=== PATIENT | female | born 1955 | race African-American/Black ===

== ENCOUNTER 2016-11-13 07:28 | Emergency (ER) | payer MEDICAID ==
[~2016-11-13] VITALS: Ht 157.5 cm; Wt 70.0 kg
[~2016-11-13 07:28] MED LIST: ATOR10TA PO; BUSP5TAB3 PO; CLON1TAB4 PO; LISI1TAB9 PO; NAPR-679 PO; OMEP20CA4 PO; PHEN100C4 PO; Trazodone Hcl PO
[2016-11-13 07:49] VITALS: BP 150/89
== END 2016-11-13 09:07 | disposition home or self-care (01) ==
LOC: ER 08:02
DX: Z76.0 Encounter for issue of repeat prescription (principal); I10 Essential (primary) hypertension
CPT/HCPCS: 99283

== ENCOUNTER 2017-02-09 07:18 | Emergency (ER) | payer MEDICAID ==
[~2017-02-09] VITALS: Ht 160 cm; Wt 66.0 kg
[2017-02-09 07:37] VITALS: BP 125/97
== END 2017-02-09 10:25 | disposition home or self-care (01) ==
LOC: ER 08:35
DX: Z76.0 Encounter for issue of repeat prescription (principal); G40.909 Epilepsy, unspecified, not intractable, without status epilepticus; I10 Essential (primary) hypertension
CPT/HCPCS: 99283

== ENCOUNTER 2017-12-08 04:54 | Emergency (ER) | payer MEDICAID ==
[~2017-12-08] VITALS: Ht 154.9 cm; Wt 65.0 kg
[~2017-12-08 04:54] MED LIST changes: +CLON1TAB12 PO; -CLON1TAB4 PO
[2017-12-08] MEDS ORDERED: KETOROLAC 60MG/2ML VIAL IM ONE (06:15)
[2017-12-08 06:31] VITALS: BP 153/99
== END 2017-12-08 06:55 | disposition home or self-care (01) ==
LOC: ER 04:54
DX: M54.5 Low back pain (principal); M54.30 Sciatica, unspecified side; I10 Essential (primary) hypertension; G40.909 Epilepsy, unspecified, not intractable, without status epilepticus; M19.90 Unspecified osteoarthritis, unspecified site; Z90.710 Acquired absence of both cervix and uterus
CPT/HCPCS: 96372; 99283; J1885

== ENCOUNTER 2017-12-09 16:32 | Inpatient (IN) | payer MEDICAID ==
[~2017-12-09] VITALS: Ht 165.1 cm; Wt 64.2 kg
[2017-12-09] MEDS ORDERED: ASPIRIN 81MG TABLET PO ONE (18:00)
[2017-12-09 18:37] LABS: BASOPHILS % 0.7 % (0.0-2.0); HEMOGLOBIN. 13.2 g/dL (12.0-16.0); LYMPHOCYTES % 47.8 % (20.0-50.0); MEAN CORPUSCULAR HEMOGLOBIN 30.5 pg (28.0-32.0); MEAN CORPUSCULAR VOLUME 90.5 fL (81.0-99.0); MEAN PLATELET VOLUME 8.2 fl (7.4-10.4); MONOCYTES % 9.2 % (2.0-8.0); NEUTROPHILS % 41.3 % (40.0-76.0); PLATELET 261 x1000/uL (130-400); RED BLOOD CELL COUNT 4.32 mill/uL (4.2-5.4); RED CELL DISTRIBUTION WIDTH 14.2 % (11.6-14.6)
[2017-12-09 18:44] LABS: CHLORIDE 110 mEq/L (98-107)
[2017-12-09 19:05] LABS: CREATINE KINASE 130 IU/L (26-192); CREATINE KINASE MB FRACTION < 1.0 ng/mL (0.5-3.6)
[2017-12-09 19:25] LABS: CLARITY URINE CLEAR (CLEAR); COLOR URINE YELLOW (YELLOW); KETONES URINE NEGATIVE (NEGATIVE); LEUKOCYTE ESTERASE URINE NEGATIVE (NEGATIVE); NITRITE URINE NEGATIVE (NEGATIVE); OCCULT BLOOD URINE NEGATIVE (NEGATIVE); PROTEIN URINE NEGATIVE (NEGATIVE); SPECIFIC GRAVITY URINE 1.005 (1.005-1.030); UROBILINOGEN URINE 0.2 E.U./dL (0.2-1.0)
[2017-12-09 21:50] VITALS: BP 156/77
[2017-12-09 22:00] VITALS: BP 156/76
[2017-12-10] VITALS: BP 151/90
[2017-12-10] MEDS ORDERED: CLONIDINE 0.1MG TABLET PO PRN (00:15)
[2017-12-10] MEDS ORDERED: ONDANSETRON HCL 4MG/2ML INJ IV PRN (00:15)
[2017-12-10] MEDS ORDERED: MAGNESIUM/ALUMINUM HYDROXIDE/SIMETHICONE 30ML UDC PO PRN (00:15)
[2017-12-10] MEDS ORDERED: GUAIFENESIN 200MG/10ML SUGAR FREE UDC PO PRN (00:15)
[2017-12-10] MEDS ORDERED: DOCUSATE SODIUM 100MG CAPSULE PO PRN (00:15)
[2017-12-10] MEDS: ENOXAPARIN 40MG/0.4ML SYR SUBCUT SCH ×2 (00:15→21:10)
[2017-12-10] MEDS ORDERED: ACETAMINOPHEN 325MG TABLET PO PRN (00:15)
[2017-12-10] MEDS: HYDROCODONE/ACETAMINOPHEN 5/325MG TABLET PO PRN ×3 (01:39→21:08)
[2017-12-10 02:02] LABS: CHLORIDE 109 mEq/L (98-107)
[2017-12-10 04:00] VITALS: BP 148/85
[2017-12-10 07:31] LABS: BASOPHILS % 0.7 % (0.0-2.0); EOSINOPHILS % 0.9 % (0.0-5.0); HEMATOCRIT. 40.2 % (36.0-48.0); HEMOGLOBIN. 13.6 g/dL (12.0-16.0); LYMPHOCYTES % 48.3 % (20.0-50.0); MEAN CORPUSCULAR HEMOGLOBIN 30.6 pg (28.0-32.0); MEAN CORPUSCULAR VOLUME 90.3 fL (81.0-99.0); MEAN PLATELET VOLUME 8.4 fl (7.4-10.4); MONOCYTES % 8.2 % (2.0-8.0); NEUTROPHILS % 41.9 % (40.0-76.0); PLATELET 261 x1000/uL (130-400); RED BLOOD CELL COUNT 4.46 mill/uL (4.2-5.4); RED CELL DISTRIBUTION WIDTH 14.2 % (11.6-14.6)
[2017-12-10 08:13] LABS: CREATINE KINASE 112 IU/L (26-192); CREATINE KINASE MB FRACTION < 1.0 ng/mL (0.5-3.6); HDL CHOLESTEROL 80 mg/dL (40-59); LDL CHOLESTEROL 107 mg/dL (5-100)
[2017-12-10] MEDS: ASPIRIN 81MG EC TABLET PO SCH (09:23)
[2017-12-10] MEDS: IPRATROPIUM/ALBUTEROL 0.5-3(2.5)MG/3ML NEB INH SCH ×3 (09:31→21:26)
[2017-12-10] MEDS ORDERED: BUSPIRONE HCL 5 MG PO PRN (11:30)
[2017-12-10] MEDS ORDERED: HYDROCHLOROTHIAZIDE 25MG TABLET PO SCH (11:30)
[2017-12-10] MEDS ORDERED: BUSPIRONE HCL 5MG TABLET PO PRN (12:15)
[2017-12-10] MEDS: LISINOPRIL 10MG TABLET PO SCH (12:21)
[2017-12-10] MEDS: PHENYTOIN SODIUM EXTENDED 100MG CAPSULE PO SCH ×3 (12:21→17:30)
[2017-12-10] MEDS: CLONAZEPAM 1MG TABLET PO SCH (12:21)
[2017-12-10 12:27] LABS: *AMPHETAMINES SCREEN URINE NEGATIVE (NEGATIVE); *BARBITURATES SCREEN URINE NEGATIVE (NEGATIVE); *BENZODIAZEPINES SCREEN URINE NEGATIVE (NEGATIVE)
[2017-12-10 12:28] LABS: *COCAINE SCREEN URINE NEGATIVE (NEGATIVE); CANNABINOID URINE SCREEN PRESUMTIVE POSITIVE (NEGATIVE); METHADONE URINE SCREEN NEGATIVE (NEGATIVE); OPIATES URINE SCREEN PRESUMTIVE POSITIVE (NEGATIVE); PHENCYCLIDINE URINE SCREEN NEGATIVE (NEGATIVE)
[2017-12-10] MEDS ORDERED: MAGNESIUM SULFATE 2 GM in DEXTROSE 5% WATER 50 ML IV NR (13:30)
[2017-12-10] MEDS ORDERED: POTASSIUM CHLORIDE 20MEQ TABLET SR PO NR (14:30)
[2017-12-10] MEDS: AMLODIPINE 2.5MG TABLET PO SCH ×2 (14:30→21:00)
[2017-12-10 18:26] LABS: CREATINE KINASE 103 IU/L (26-192); CREATINE KINASE MB FRACTION < 1.0 ng/mL (0.5-3.6)
[2017-12-10 20:00] VITALS: BP_SYST 114; BP_SYST 125; BP_SYST 97; BP_DIAS 62; BP_DIAS 81; BP_DIAS 86
[2017-12-10] MEDS: ATORVASTATIN CALCIUM 10MG TABLET PO SCH (21:06)
[2017-12-10] MEDS: TRAZODONE HCL 50MG TABLET PO SCH (21:08)
[2017-12-11] VITALS (8 sets, daily range): BP systolic 90–124; BP diastolic 45–94
[2017-12-11] MEDS: IPRATROPIUM/ALBUTEROL 0.5-3(2.5)MG/3ML NEB INH SCH ×3 (02:30→14:03)
[2017-12-11 06:22] LABS: BASOPHILS % 0.7 % (0.0-2.0); EOSINOPHILS % 0.8 % (0.0-5.0); HEMATOCRIT. 41.4 % (36.0-48.0); LYMPHOCYTES % 43.7 % (20.0-50.0); MEAN CORPUSCULAR HEMOGLOBIN 30.6 pg (28.0-32.0); MEAN CORPUSCULAR VOLUME 90.6 fL (81.0-99.0); MEAN PLATELET VOLUME 8.5 fl (7.4-10.4); MONOCYTES % 8.8 % (2.0-8.0); PLATELET 265 x1000/uL (130-400); RED BLOOD CELL COUNT 4.57 mill/uL (4.2-5.4); RED CELL DISTRIBUTION WIDTH 14.1 % (11.6-14.6)
[2017-12-11] MEDS: OMEPRAZOLE 20MG CAPSULE EXTENDED RELEASE PO SCH (06:45)
[2017-12-11 08:51] LABS: CHLORIDE 105 mEq/L (98-107)
[2017-12-11 09:06] LABS: HDL CHOLESTEROL 76 mg/dL (40-59); LDL CHOLESTEROL 112 mg/dL (5-100)
[2017-12-11] MEDS: CLONAZEPAM 1MG TABLET PO SCH (09:35)
[2017-12-11] MEDS: PHENYTOIN SODIUM EXTENDED 100MG CAPSULE PO SCH ×3 (09:35→18:51)
[2017-12-11] MEDS: ASPIRIN 81MG EC TABLET PO SCH (09:35)
[2017-12-11] MEDS: AMLODIPINE 2.5MG TABLET PO SCH ×2 (09:36→20:37)
[2017-12-11] MEDS: LISINOPRIL 10MG TABLET PO SCH (09:36)
[2017-12-11] MEDS: HYDROCODONE/ACETAMINOPHEN 5/325MG TABLET PO PRN ×2 (09:37→17:54)
[2017-12-11] MEDS ORDERED: REGADENOSON 0.4 MG/5 ML IV NR (16:00)
[2017-12-11] MEDS: ATORVASTATIN CALCIUM 10MG TABLET PO SCH (20:35)
[2017-12-11] MEDS: ENOXAPARIN 40MG/0.4ML SYR SUBCUT SCH (20:37)
[2017-12-11] MEDS: TRAZODONE HCL 50MG TABLET PO SCH (20:37)
[2017-12-12] VITALS (9 sets, daily range): BP systolic 90–129; BP diastolic 61–95
[2017-12-12] MEDS: OMEPRAZOLE 20MG CAPSULE EXTENDED RELEASE PO SCH (05:59)
[2017-12-12] MEDS: HYDROCODONE/ACETAMINOPHEN 5/325MG TABLET PO PRN ×2 (06:04→18:06)
[2017-12-12 07:03] LABS: BASOPHILS % 0.7 % (0.0-2.0); EOSINOPHILS % 0.7 % (0.0-5.0); HEMATOCRIT. 43.6 % (36.0-48.0); HEMOGLOBIN. 14.7 g/dL (12.0-16.0); LYMPHOCYTES % 45.7 % (20.0-50.0); MEAN CORPUSCULAR HEMOGLOBIN 30.3 pg (28.0-32.0); MEAN CORPUSCULAR VOLUME 89.9 fL (81.0-99.0); MEAN PLATELET VOLUME 8.1 fl (7.4-10.4); MONOCYTES % 8.7 % (2.0-8.0); NEUTROPHILS % 44.2 % (40.0-76.0); PLATELET 276 x1000/uL (130-400); RED BLOOD CELL COUNT 4.85 mill/uL (4.2-5.4); RED CELL DISTRIBUTION WIDTH 14.3 % (11.6-14.6)
[2017-12-12] MEDS: IPRATROPIUM/ALBUTEROL 0.5-3(2.5)MG/3ML NEB INH SCH ×3 (08:40→20:06)
[2017-12-12] MEDS: ASPIRIN 81MG EC TABLET PO SCH (09:35)
[2017-12-12] MEDS: CLONAZEPAM 1MG TABLET PO SCH (09:36)
[2017-12-12] MEDS: AMLODIPINE 2.5MG TABLET PO SCH ×2 (09:36→20:37)
[2017-12-12] MEDS: LISINOPRIL 10MG TABLET PO SCH (09:36)
[2017-12-12] MEDS: PHENYTOIN SODIUM EXTENDED 100MG CAPSULE PO SCH ×3 (09:36→17:03)
[2017-12-12 10:48] LABS: CHLORIDE 105 mEq/L (98-107)
[2017-12-12] MEDS: ENOXAPARIN 40MG/0.4ML SYR SUBCUT SCH (20:36)
[2017-12-12] MEDS: ATORVASTATIN CALCIUM 10MG TABLET PO SCH (20:36)
[2017-12-12] MEDS: TRAZODONE HCL 50MG TABLET PO SCH (20:36)
[2017-12-13] MEDS: IPRATROPIUM/ALBUTEROL 0.5-3(2.5)MG/3ML NEB INH SCH ×4 (02:47→20:31)
[2017-12-13 04:00] VITALS: BP 95/71
[2017-12-13] MEDS: OMEPRAZOLE 20MG CAPSULE EXTENDED RELEASE PO SCH (05:51)
[2017-12-13] MEDS: AMLODIPINE 2.5MG TABLET PO SCH ×2 (09:00→21:00)
[2017-12-13] MEDS ORDERED: REGADENOSON 0.4 MG/5 ML IV ONE (09:41)
[2017-12-13] MEDS: ASPIRIN 81MG EC TABLET PO SCH (11:18)
[2017-12-13] MEDS: CLONAZEPAM 1MG TABLET PO SCH (11:18)
[2017-12-13] MEDS: PHENYTOIN SODIUM EXTENDED 100MG CAPSULE PO SCH ×3 (11:18→17:00)
[2017-12-13] MEDS: LISINOPRIL 10MG TABLET PO SCH (11:20)
[2017-12-13 12:00] VITALS: BP_SYST 114; BP_SYST 116; BP_SYST 127; BP_DIAS 78; BP_DIAS 81; BP_DIAS 96
[2017-12-13] MEDS: HYDROCODONE/ACETAMINOPHEN 5/325MG TABLET PO PRN ×2 (12:41→20:56)
[2017-12-13 16:00] VITALS: BP 94/66
[2017-12-13 20:00] VITALS: BP 110/81
[2017-12-13] MEDS: ATORVASTATIN CALCIUM 10MG TABLET PO SCH (20:55)
[2017-12-13] MEDS: TRAZODONE HCL 50MG TABLET PO SCH (20:55)
[2017-12-13] MEDS: ENOXAPARIN 40MG/0.4ML SYR SUBCUT SCH (20:57)
[2017-12-13] MEDS: FAMOTIDINE 20MG TABLET PO SCH (21:13)
[2017-12-13] MEDS ORDERED: PHENYTOIN SODIUM EXTENDED 100MG CAPSULE PO NR (22:30)
[2017-12-14] VITALS: BP_SYST 104; BP_SYST 108; BP_SYST 94; BP_DIAS 70; BP_DIAS 75
[2017-12-14] MEDS: IPRATROPIUM/ALBUTEROL 0.5-3(2.5)MG/3ML NEB INH SCH ×3 (02:42→12:37)
[2017-12-14 04:00] VITALS: BP 99/70
[2017-12-14] MEDS: OMEPRAZOLE 20MG CAPSULE EXTENDED RELEASE PO SCH (06:17)
[2017-12-14 06:46] LABS: BASOPHILS % 0.6 % (0.0-2.0); EOSINOPHILS % 0.9 % (0.0-5.0); HEMATOCRIT. 43.9 % (36.0-48.0); LYMPHOCYTES % 50.7 % (20.0-50.0); MEAN CORPUSCULAR HEMOGLOBIN 30.9 pg (28.0-32.0); MEAN CORPUSCULAR VOLUME 90.4 fL (81.0-99.0); MEAN PLATELET VOLUME 8.4 fl (7.4-10.4); MONOCYTES % 11.7 % (2.0-8.0); NEUTROPHILS % 36.1 % (40.0-76.0); PLATELET 278 x1000/uL (130-400); RED BLOOD CELL COUNT 4.85 mill/uL (4.2-5.4); RED CELL DISTRIBUTION WIDTH 13.8 % (11.6-14.6)
[2017-12-14 07:38] LABS: CHLORIDE 104 mEq/L (98-107)
[2017-12-14 08:00] VITALS: BP 119/83
[2017-12-14] MEDS: AMLODIPINE 2.5MG TABLET PO SCH (08:57)
[2017-12-14] MEDS: PHENYTOIN SODIUM EXTENDED 100MG CAPSULE PO SCH ×2 (09:18→13:56)
[2017-12-14] MEDS: CLONAZEPAM 1MG TABLET PO SCH (09:18)
[2017-12-14] MEDS: FAMOTIDINE 20MG TABLET PO SCH (09:18)
[2017-12-14] MEDS: ASPIRIN 81MG EC TABLET PO SCH (09:18)
[2017-12-14] MEDS: LISINOPRIL 10MG TABLET PO SCH (09:18)
[2017-12-14 11:51] VITALS: BP 109/80
[2017-12-14] MEDS: HYDROCODONE/ACETAMINOPHEN 5/325MG TABLET PO PRN (12:02)
[2017-12-14] MEDS ORDERED: ATOR10TA PO (12:54)
[2017-12-14] MEDS ORDERED: LISI10TA5 PO (12:54)
[2017-12-14] MEDS ORDERED: FAMO20TA8 PO (12:54)
[2017-12-14] MEDS ORDERED: TRAM50TA3 MT (12:54)
[2017-12-14] MEDS ORDERED: PHEN100C4 PO (12:54)
[2017-12-14] MEDS ORDERED: AMLO2.5T45 PO (12:54)
[2017-12-14] MEDS ORDERED: ASPI-1158 PO (12:54)
[2017-12-14 14:47] VITALS: BP 109/80
== END 2017-12-14 15:25 | disposition home or self-care (01) | DRG 48 ==
LOC: ER 16:32 → 5WST 19:53 → CANRESERV 20:41 → ENRESERV 20:41
PROVIDERS: ADMIT Internal Medicine; ATTEND Internal Medicine
DX: G90.8 Other disorders of autonomic nervous system (principal); E83.42 Hypomagnesemia; R07.9 Chest pain, unspecified; E78.5 Hyperlipidemia, unspecified; I10 Essential (primary) hypertension; E78.00 Pure hypercholesterolemia, unspecified; F12.90 Cannabis use, unspecified, uncomplicated; F41.9 Anxiety disorder, unspecified; G40.909 Epilepsy, unspecified, not intractable, without status epilepticus; I65.22 Occlusion and stenosis of left carotid artery; K21.9 Gastro-esophageal reflux disease without esophagitis; M19.90 Unspecified osteoarthritis, unspecified site; Z82.49 Family history of ischemic heart disease and other diseases of the circulatory system; Z90.710 Acquired absence of both cervix and uterus; Z79.899 Other long term (current) drug therapy; Z79.82 Long term (current) use of aspirin
CPT/HCPCS: 36415; 71045; 78452; 80048; 80061; 80185; 80305; 82550; 82553; 83036; 83735; 83880; 84443; 84484; 85379; 93005; 93017; 93306; 93880; 93970; 94640; 99285; A9500; J1650; J2405; J2785; J3475; J7030; J7060; J7620

== ENCOUNTER 2021-04-14 11:28 | Emergency (ER) | payer MEDICAID ==
[~2021-04-14] VITALS: Ht 154.9 cm; Wt 68.0 kg
[~2021-04-14 11:28] MED LIST changes: +AMLO2.5T45 PO; +ASPI-1406 PO; +FAMO20TA8 PO; +LISI10TA26 PO; -LISI1TAB9 PO; -OMEP20CA4 PO; +TRAM50TA3 MT
[2021-04-14 11:37] VITALS: BP 171/106
== END 2021-04-14 13:01 | disposition home or self-care (01) ==
LOC: ER 11:28
DX: H61.21 Impacted cerumen, right ear (principal); I10 Essential (primary) hypertension; G40.909 Epilepsy, unspecified, not intractable, without status epilepticus; Z79.899 Other long term (current) drug therapy
CPT/HCPCS: 69209; 99282

== ENCOUNTER 2021-11-18 04:23 | Emergency (ER) | payer MEDICAID, OTHER ==
[~2021-11-18] VITALS: Ht 157.5 cm; Wt 70.1 kg
[2021-11-18] MEDS ORDERED: MORPHINE SULFATE 4 MG/ML CPJ (NOT FOR IM USE) IV STA (06:43)
[2021-11-18] MEDS ORDERED: ONDANSETRON HCL 4MG/2ML INJ IV STA (06:43)
[2021-11-18] MEDS ORDERED: SODIUM CHLORIDE 0.9% 1,000 ML IV ONE (06:45)
[2021-11-18 07:10] LABS: HEMATOCRIT. 38.7 % (36.0-48.0); HEMOGLOBIN. 12.7 g/dL (12.0-16.0); MEAN CORPUSCULAR HEMOGLOBIN 28.9 pg (28.0-32.0); MEAN CORPUSCULAR VOLUME 88.2 fL (81.0-99.0); MEAN PLATELET VOLUME 8.1 fl (7.4-10.4); PLATELET 261 x1000/uL (130-400); RED BLOOD CELL COUNT 4.38 mill/uL (4.2-5.4); RED CELL DISTRIBUTION WIDTH 14.1 % (11.6-14.6)
[2021-11-18 07:19] LABS: CHLORIDE 106 mEq/L (98-107)
[2021-11-18 07:20] LABS: PROTHROMBIN TIME 10.9 sec (9.6-11.0)
[2021-11-18 07:39] LABS: PLATELET ESTIMATE NORMAL
[2021-11-18 09:02] LABS: CLARITY URINE CLEAR (CLEAR); COLOR URINE YELLOW (YELLOW); KETONES URINE NEGATIVE (NEGATIVE); LEUKOCYTE ESTERASE URINE NEGATIVE (NEGATIVE); NITRITE URINE NEGATIVE (NEGATIVE); OCCULT BLOOD URINE NEGATIVE (NEGATIVE); PH URINE 5.5 (4.5-8.0); PROTEIN URINE NEGATIVE (NEGATIVE); SPECIFIC GRAVITY URINE 1.006 (1.005-1.030)
[2021-11-18] MEDS ORDERED: T3 PO (10:00)
[2021-11-18] MEDS ORDERED: CEPH500C2 MT (10:00)
[2021-11-18] MEDS ORDERED: CEPHALEXIN 250MG CAPSULE PO ONE (10:00)
[2021-11-18 10:30] VITALS: BP 118/76
== END 2021-11-18 10:49 | disposition home or self-care (01) ==
LOC: ER 04:23
DX: N61.0 Mastitis without abscess (principal); I10 Essential (primary) hypertension; E11.9 Type 2 diabetes mellitus without complications; Z79.899 Other long term (current) drug therapy; Z86.59 Personal history of other mental and behavioral disorders; Z98.890 Other specified postprocedural states; Z13.9 Encounter for screening, unspecified
CPT/HCPCS: 36415; 71045; 76641; 80053; 81003; 84484; 85025; 85610; 93005; 96361; 96374; 96375; 99285; J2270; J2405; J7030